=== PATIENT | male | born 1940 | race Caucasian/White ===

== ENCOUNTER 2016-11-04 12:10 | Inpatient (IN) | payer MEDICARE, BC ==
[~2016-11-04] VITALS: Ht 177.8 cm; Wt 147.4 kg
[~2016-11-04 12:10] MED LIST: AMBIEN5 MG PO; ASPIRIN325 MG PO; ATIVAN0.5 MG PO; ATROVENT 0.06%15 ML; BRINTELLIX10 MG PO; CELEXA40 MG PO; CRESTOR10 MG PO; FISH OIL PO; FLOMAX0.4 MG PO; GLUCOPHAGE500 MG PO; LASIX20 MG; LEVAQUIN750 MG PO; MYSOLINE 50 MG50 MG PO; OXYBUTYNIN CHLOR5 MG PO; PATADAY2.5 ML EACH EYE; PINDOLOL5 MG PO; POTASSIUM PO; PRINIVIL20 MG PO; SYSTANE 0.3-0.4%5 ML EACH EYE; TEGRETOL 200 M200 MG PO; TIROSINT25 MCG PO; TRAVATAN Z2.5 ML EACH EYE; VITAMIN D2000 UNIT PO; ZESTORETIC 20/11 TAB
[2016-11-04 13:46] LABS: HEMATOCRIT 43.7 % (42.0-54.0); HEMOGLOBIN 14.4 g/dL (13.5-17.5); MCH 32.1 pg (26.0-34.0); MCV 97.5 fL (80.0-100.0); MEAN PLATELET VOLUME 10.2 fL (7.4-10.4); PLATELET COUNT 173 10x3/uL (130-400); RBC 4.48 10x6/uL (4.20-6.10); RDW 13.3 % (11.5-14.5); WBC 22.2 10x3/uL (4.8-10.8)
[2016-11-04 14:14] LABS: ALBUMIN 3.9 g/dL (3.4-5.0); ALKALINE PHOSPHATASE 64 U/L (46-116); ALT (SGPT) 19 U/L (10-68); CALC OSMOLALITY 276 mosm/kg (275-300); CALCIUM 8.7 mg/dL (8.5-10.1); CARBON DIOXIDE 26.6 mmol/L (21.0-32.0); CHLORIDE - SERUM 99 mmol/L (98-107); CREATININE - SERUM 1.2 mg/dL (0.6-1.3); GLUCOSE 133 mg/dL (74-106); PROTEIN - SERUM 7.4 g/dL (6.4-8.2); SODIUM 137 mmol/L (136-145); UREA NITROGEN 16 mg/dL (7-18); eGFR NON AFRICAN AMERICAN 63 mL/min (90-120)
[2016-11-04 14:17] LABS: APPEARANCE HAZY (CLEAR); BACTERIA MANY /hpf (NONE SEEN); BILIRUBIN NEGATIVE (NEGATIVE); COLOR YELLOW (YELLOW); EPITHELIAL CELLS OCC /hpf (0-5); GLUCOSE NEGATIVE (NEGATIVE); KETONE NEGATIVE (NEGATIVE); LEUKOCYTE ESTERASE 2+ (NEGATIVE); MUCUS <1+ /lpf (NONE SEEN); NITRITE POSITIVE (NEGATIVE); PROTEIN 1+ mg/dL (NEGATIVE); RED CELLS - URINE 0-5 /hpf (0-5)
[2016-11-04 14:20] LABS: CREATINE KINASE 189 UL (21-232); PRO BNP 954 pg/mL (0-450); TROPONIN-I < 0.017 ng/mL (0.000-0.060)
[2016-11-04 14:41] LABS: UDS - AMPHET NEGATIVE QUAL (NEGATIVE); UDS - BARB POSITIVE QUAL (NEGATIVE); UDS - BENZO POSITIVE QUAL (NEGATIVE); UDS - COCAINE NEGATIVE QUAL (NEGATIVE); UDS - METH NEGATIVE QUAL (NEGATIVE); UDS - OPIATE NEGATIVE QUAL (NEGATIVE); UDS - PCP NEGATIVE QUAL (NEGATIVE); UDS - THC NEGATIVE QUAL (NEGATIVE)
[2016-11-04 15:01] LABS: BASOPHILS 1 % (0.0-2.0); LYMPHOCYTES 14 % (15-50); MONOCYTES 4 % (2-11); NEUTROPHILS 73 % (40-80)
[2016-11-04 15:02] LABS: PLATELET ESTIMATE DECREASED
[2016-11-04 18:22] VITALS: BP 118/73; BMI 46.7
--- NOTE | 2016-11-04 18:31 | NUR ---
Patient Name: ANKIT ANTHONY Admission Status: ER Accout number: [id number] Admission Date: 11-04-2016 : 1940 Admission Diagnosis: UTI, Sepsis Attending: ROXANNE Current LOS: 1 Anticipated DC Date: 11/07/16 Planned Disposition: Return home with . Primary Insurance: MEDICARE A & B Discharge Planning Comments: CM met with patient and family to complete initial discharge assessment. Spouse gave consent to complete assessment. Patient alert and oriented x 1. Spouse stated confusion is new for patient. She reports he is normally A&O x 3 but has been confused past few days. He is normally independent in his care at home. He has BIPAP that he wears at HS. He does not wear O2 at home. She denied patient having home health or other community resources at home. She is unsure of dc needs at this time. Patient will return home at discharge. Cm will continue to follow and assist as needed with dc plans/needs. Inclusion Specialist: Trish Bell RN, [facility] Is the patient Alert and Oriented? No * How many steps to enter\exit or inside your home? 1 * PCP Dr. Kapoor[facility] * Pharmacy [facility] * Preadmission Environment Home with Family * ADLs Independent * Equipment BIPAP * Other Equipment [employer] [place] Patient * List name and contact numbers for known caregivers / representatives who currently or will assist patient after discharge: More Anthony - spouse - [phone] * Community resources currently utilized None * Additional services required to return to the preadmission environment? No * Can the patient safely return to the preadmission environment? Yes * Has this patient been hospitalized within the prior 30 days at any hospital? No
[2016-11-04 19:00] VITALS: BP 130/62
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
--- NOTE | 2016-11-05 03:49 | NUR ---
PT RESTING IN BED WITH NO DISTRESS. RESPIRATIONS WITH EASE AND UNLABORED. SIDE RAILS ARE UP X 2. BED IS IN LOWEST POSITION. CALL LIGHT IS WITHIN REACH. VISITOR AT BEDSIDE.
[2016-11-05 04:00] VITALS: BP 129/63
[2016-11-05 04:57] LABS: BASOPHILS 0.1 % (0.0-2.0); EOSINOPHILS 0.2 % (0-7); HEMATOCRIT 38.5 % (42.0-54.0); HEMOGLOBIN 12.9 g/dL (13.5-17.5); IMMATURE GRANULOCYTES 0.3 % (0-5); LYMPHOCYTES 9.8 % (15-50); MCHC 33.5 g/dL (31.0-37.0); MEAN PLATELET VOLUME 10.2 fL (7.4-10.4); MONOCYTES 12.1 % (2-11); NEUTROPHILS 77.5 % (40-80); PLATELET COUNT 178 10x3/uL (130-400); RBC 4.03 10x6/uL (4.20-6.10); RDW 13.2 % (11.5-14.5)
[2016-11-05 04:58] LABS: MCV 95.5 fL (80.0-100.0)
[2016-11-05 05:08] LABS: ANION GAP 12.8 mmol/L (8-16); CALCIUM 8.4 mg/dL (8.5-10.1); CARBON DIOXIDE 26.7 mmol/L (21.0-32.0); CREATININE - SERUM 1.3 mg/dL (0.6-1.3); POTASSIUM - SERUM 3.5 mmol/L (3.5-5.1)
--- NOTE | 2016-11-05 06:33 | HP ---
PATIENT: ANKIT ANTHONY MEDICAL RECORD: [id number] ACCOUNT: [id number] LOCATION:D.MS [id number] : [birth year] ADMISSION DATE: 11/04/16 HISTORY AND PHYSICAL EXAMINATION DATE OF ADMISSION: 11/04/2016 CHIEF COMPLAINT: Frequent falls. HISTORY OF PRESENT ILLNESS: The patient is a 76-year-old gentleman, who began yesterday having extreme weakness in his upper and lower extremities. He had fallen times 5. The states that she thought he may have had a seizure. The patient presents to the Emergency Room. PAST MEDICAL HISTORY: Significant that he has had a history of having arteriosclerotic heart disease. He has had hypertension. The patient had coronary artery bypass grafting times 3 in 2009. He has had anxiety, as well as a low back pain, depression, diabetes, hyperlipidemia, hypertension and hypothyroidism. FAMILY HISTORY: Significant for myocardial infarction in his father. Mother of old age. MEDICATIONS: Include alprazolam ER 2 mg 1 p.o. b.i.d., aspirin 325 mg once a day, carbamazepine 200 mg 2 tablets b.i.d., timolol 6.8 mg per mL eyedrops, Lasix 40 mg in the morning and 40 in the afternoon, levothyroxine 25 mcg once a day, lisinopril/HCTZ 20/12.5 once a day, metformin 500 mg 1 tablet p.o. b.i.d., oxybutynin ER 10 mg 1 p.o. q. day, pindolol 5 mg 1 p.o. b.i.d., KCl 10 mEq once a day, primidone 50 mg p.o. q.h.s., Crestor 10 mg once a day, Flomax 0.4 mg 2 tablets once a day, Travatan 0.004% eyedrops and Trintellix 20 mg 1 p.o. q. day. HABITS: None. The patient is a former smoker, stopped in 1991. SOCIAL HISTORY: Born and raised in [place], [place]. 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 REVIEW OF SYSTEMS: CONSTITUTIONAL: He denies any headaches, seizure or syncope. Denies change in visual or auditory acuity. PULMONARY: He denies any shortness of breath, cough, congestion, history of TB, asthma or bronchitis. CARDIOVASCULAR: He has had no chest pain, palpitation, PND or orthopnea. GASTROINTESTINAL: No chronic nausea, vomiting, melena or hematochezia. GENITOURINARY: No urgency, frequency, or dysuria. PHYSICAL EXAMINATION: GENERAL: The patient does have a laceration over the tip of the nose. He has abrasions over the elbows. The patient is alert and oriented times 3. HEENT: His head is normocephalic. No lesions. Ears: TMs clear. Eyes: Pupils equal, round and reactive to light. His extraocular movements intact. Nasal cavity, oral cavity and oropharynx clear. NECK: Supple. There is no adenopathy. HEART: Has regular rhythm. No murmurs, gallops or rubs. LUNGS: Clear. ABDOMEN: Soft, bowel sounds positive. No organomegaly. HISTORY AND PHYSICAL [id number] ANTHONYANKITTERESE YIP GENITAL AND RECTAL: Deferred. LABORATORY DATA: The patient did have a CBC: White count was elevated at 22.2, his hemoglobin 14.4, hematocrit 43.7 and platelets are 173. He did have a left shift with increased neutrophils. His lactic acid was 2.1. Urinalysis showed positive nitrites. He also had 2+ leukocyte esterase. He had 5-10 wbc's per high power field, many bacteria were seen. He had a sodium of 137, potassium 4, chloride is 99, CO2 is 26.6, his BUN is 16, creatinine is 1.2, glucose is 133. He had a proBNP of 954. DIAGNSOTIC DATA: The patient had a chest x-ray showing mild cardiomegaly, no active infiltrates. The patient also had a CT scan of the head which is pending at the present time. ASSESSMENT: 1. Frequent falls. 2. Probable urosepsis, leukocytosis, coronary artery bypass grafting in the past, hyperlipidemia, hypertension, hypothyroidism and history of seizure disorder. PLAN: The patient will have a blood cultures, as well as urine cultures. He will be placed on Levaquin, as well as Rocephin, Tylenol for fever control, IV hydration. TRANSINT:[id number] Voice Confirmation ID: [id number] DOCUMENT ID: [id number] DOUGLAS CAMACHO MD at 0633 CC: [id number] DICTATION DATE: 11/04/16 180 RADIATION ONCOLOGY MANAGER: 11/04/161958 ADM IN [facility] [address] [id number]
--- NOTE | 2016-11-05 07:00 | NUR ---
REPORT RECEIVED FROM AUTOMOTIVE SALES MANAGER NURSE. CALL LIGHT IN REACH.
[2016-11-05 08:15] VITALS: BP 127/71
--- NOTE | 2016-11-05 09:17 | NUR ---
ASSESSMENT COMPLETED. AM MEDS ADMINISTERED. AT BEDSIDE. CALL LIGHT IN REACH. WILL CONTINUE WITH PLAN OF CARE.
--- NOTE | 2016-11-05 09:46 | NUR ---
PASSWORD OBTAINED AND PHARMACY UPDATED. SHOWER GIVEN PER CLOUD SUBJECT MATTER EXPERT.
--- NOTE | 2016-11-05 10:20 | NUR ---
OUT OF SHOWER. IV FLUIDS BACK INFUSING. CALL LIGHT IN REACH.
[2016-11-05] MEDS ORDERED: LISINOPRIL-HCTZ1 T11 PO (11:54)
[2016-11-05 12:30] VITALS: BP 127/61
--- NOTE | 2016-11-05 12:35 | NUR ---
EATING LUNCH AT THIS TIME. CALL LIGHT IN REACH.
[2016-11-05 13:36] VITALS: Ht 177.8 cm; Wt 147.4 kg
--- NOTE | 2016-11-05 14:14 | NUR ---
AMBULATED 250 FEET IN HALLWAY WITH PHYSICAL THERAPY. TOLERATED WELL.
--- NOTE | 2016-11-05 15:30 | NUR ---
QUIET IN ROOM AT PRESENT DENIES ANY NEEDS AT THIS TIME RESP EVEN AND UNLABORED AT PRESENT.
--- NOTE | 2016-11-05 15:35 | NUR ---
REPORT GIVEN TO GERRI GILL.
[2016-11-05 16:05] VITALS: BP 118/62
--- NOTE | 2016-11-05 18:26 | NUR ---
LEFT HAND PHERIAL LINE PATENT. SCHEDULED ANTIBIOTIC HUNG
[2016-11-05 19:00] VITALS: BP 140/63
--- NOTE | 2016-11-05 19:35 | NUR ---
RECIEVED SHIFT REPORT. PT IS LYING IN BED. ALERT AND ORIENTED AND ABLE TO VERBALIZE NEEDS. IV IS PATENT AND FLUIDS ARE RUNNING PER ORDER. O2 @ 2 PER NASAL CANNULA. PT IS AMBULATORY WITH ASSISTANCE. PT STATES PAIN IS 2/10. NO NEEDS ARE VERBALIZED AT THIS TIME. AT BEDSIDE. WILL CONTINUE TO MONITOR. SIDE RAILS ARE UP X 2. BED IS IN LOWEST POSITION. CALL LIGHT IS WITHIN REACH.
--- NOTE | 2016-11-05 21:31 | NUR ---
SHIFT ASSESSMENT COMPLETED. NIGHT MEDS GIVEN WITH NO PROBLEMS. NO NEEDS ARE VOICED. WILL MONITOR. SIDE RAILS X 2. BED LOW. AT BEDSIDE. CALL LIGHT IN REACH.
[2016-11-05 23:59] VITALS: BP 140/64
[2016-11-06 05:03] VITALS: BP 115/74
[2016-11-06 05:30] LABS: ANION GAP 14.2 mmol/L (8-16); CALCIUM 8.4 mg/dL (8.5-10.1); CARBON DIOXIDE 27.1 mmol/L (21.0-32.0); CREATININE - SERUM 1.2 mg/dL (0.6-1.3); POTASSIUM - SERUM 3.3 mmol/L (3.5-5.1)
[2016-11-06 05:31] LABS: BASOPHILS 0.1 % (0.0-2.0); EOSINOPHILS 2.2 % (0-7); HEMATOCRIT 39.1 % (42.0-54.0); HEMOGLOBIN 13.5 g/dL (13.5-17.5); IMMATURE GRANULOCYTES 0.3 % (0-5); LYMPHOCYTES 17.6 % (15-50); MCH 32.6 pg (26.0-34.0); MCHC 34.5 g/dL (31.0-37.0); MCV 94.4 fL (80.0-100.0); MEAN PLATELET VOLUME 10.7 fL (7.4-10.4); MONOCYTES 13.6 % (2-11); NEUTROPHILS 66.2 % (40-80); RBC 4.14 10x6/uL (4.20-6.10); RDW 13.2 % (11.5-14.5)
[2016-11-06 05:48] LABS: PLATELET COUNT 221 10x3/uL (130-400); WBC 10.1 10x3/uL (4.8-10.8)
[2016-11-06] MEDS ORDERED: LASIX40 MG PO (06:51)
[2016-11-06] MEDS ORDERED: LEVAQUIN750 MG PO (06:54)
[2016-11-06] MEDS ORDERED: KLOR-CON 1010 MEQ PO (06:54)
--- NOTE | 2016-11-06 07:00 | NUR ---
REPORT RECEIVED FROM PROFESSIONAL NURSE NURSE. CALL LIGHT IN REACH.
--- NOTE | 2016-11-06 07:30 | NUR ---
RESTING QUIETLY IN BED WITH EYES CLOSED. ANXIOUS TO GET HOME. DENIES NEEDS.
--- NOTE | 2016-11-06 08:09 | NUR ---
ASSESSMENT COMPLETED. IV DC'D WITH INTACT. IN ROOM. CALL LETHA N FARHANA. WILL CONTINUE WITH PLAN OF CARE.
--- NOTE | 2016-11-06 08:29 | NUR ---
AM MEDS ADMINISTERED. DC INSTRUCTIONS EXPLAINED TO PATIENT AND FAMILY. VERBALIZED UNDERSTANDING. WAITING FOR PATIENT TO GET DRESSED SO HE CAN GO.
--- NOTE | 2016-11-06 08:29 | NUR ---
ASSESSMENT COMPLETED. AM MEDS ADMINISTERED. DC INSTRUCTIONS EXPLAINED TO PATIENT, , AND SON, VERBALIZED UNDERSTANDING. CALL LIGHT IN REACH. WILL CONTINUE WITH PLAN OF CARE.
--- NOTE | 2016-11-06 08:50 | NUR ---
WC CALLED FOR PATIENT AND .
--- NOTE | 2016-11-06 08:55 | NUR ---
DC'D TO VEHICLE VIA WC WITH FAMILY.
--- NOTE | 2016-11-06 08:57 | NUR ---
CM REASSESSMENT NOTE: PATIENT STATED HE HAS NO NEEDS FOR DISCHARGE AND DENIED HOME HEALTH. CM SPOKE WITH NURSING (CEJA) TO DO A SPO2 CHECK BEFORE DISCHARGE.
--- NOTE | 2016-12-17 07:06 | DS ---
PATIENT:ANKIT ANTHONY :42 MEDICAL RECORD: [id number] DISCHARGE SUMMARY ADMISSION DATE: 11/04/16 DISCHARGE DATE: 11/06/16 DATE OF ADMISSION: 11/04/2016 DATE OF DISCHARGE: 11/06/2016 CONDITION ON DISCHARGE: Improved. ADMITTING DIAGNOSES: Frequent falls, probable urosepsis, leukocytosis, history of coronary artery bypass grafting, sleep apnea, hyperlipidemia, hypertension, hypothyroidism, history of seizure disorder. DISCHARGE DIAGNOSES: Sepsis, urinary tract infection, morbid obesity, history of arteriosclerotic heart disease, history of seizure disorder, morbid obesity, hyperlipidemia, hypothyroidism, diabetes mellitus. HOSPITAL COURSE: The patient is a 76-year-old gentleman who began experiencing extreme weakness in his upper and lower extremities. He had fallen times 5, 24 hours prior to his arrival. The patient's thought that the patient may have had a seizure, presented to the Emergency Room. The patient did have a laceration over the tip of the nose. He had abrasion over the elbows. PHYSICAL EXAMINATION: GENERAL: He was alert and oriented times 3. HEENT: Unremarkable. NECK: Supple. There is no adenopathy. HEART: Had regular rate and rhythm. No murmurs, gallops or rubs. LUNGS: Clear. ABDOMEN: Soft, bowel sounds are positive. No organomegaly. LABORATORY DATA: The patient had a white count elevated at 22.2, his hemoglobin 14.4, hematocrit 43.7, platelets of 173. He had a left shift with neutrophils. Lactic acid was 2.1. Urinalysis showed positive nitrite, 2+ leukocytes. He had 5-10 wbc's per high powered field, many bacteria were seen. BUN was 16, creatinine was 1, blood sugar was 133. The patient was admitted. He had a CT scan of the head, which was unremarkable. He was started on Levaquin as well as Rocephin. On the morning following his admission, his white count had decreased to 17. He was no longer febrile. His vital signs were stable. On the , the patient was afebrile. No longer having any evidence of near syncope or falls. His white count was down to 10.1, hemoglobin 13.5, hematocrit was 39.1, his platelets were 221. He had sodium 133, potassium 3.3, chloride was 100, CO2 was 27, BUN was 26, creatinine 1.1, his glucose 125. The patient had negative blood cultures. His condition did improve. He was no longer febrile and it was felt the patient could be discharged home. DISCHARGE MEDICATIONS: Therefore, he was discharged on: Lasix 40 mg p.o. b.i.d., KCl 10 mEq b.i.d., Levaquin 750 mg once a day for 7 days, Visken 5 mg p.o. b.i.d., metformin 500 mg p.o. b.i.d., levothyroxine 25 mcg once a day, Crestor 10 mg once a day, aspirin 325 mg daily, Flomax 0.4 mg daily, Tegretol 200 mg p.o. b.i.d., Ativan 0.5 mg q.6 hours p.r.n. anxiety, ____ 10 mg b.i.d., Mysoline 50 mg b.i.d., Brintellix 20 mg once daily, Travatan Z 0.004% ophthalmic 2.5 mL drops 1 in each eye q.h.s., Pataday 0.2 mg ophthalmic 2.5 drops 1 drop in each eye daily, Systane 5 mL drops 1 drop q.i.d. in each eye, Zestoretic 20/12.5 DISCHARGE SUMMARY REPORT [id number] ANKIT ANTHONY once a day. The patient was given 40 mEq of KCl prior to his discharge. DIET: He was discharged on 2200 calorie ADA diet. ACTIVITIES: Ad beth. FOLLOWUP: He would follow up with me in approximately 1 week. TRANSINT:[id number] Voice Confirmation ID: [id number] DOCUMENT ID: [id number] DOUGLAS CAMACHO MD at 0706 CC: [id number] DICTATION DATE: 12/15/16 1347 DEPUTY CHIEF COUNSEL: 12/16/16 0926 DIS IN 11/06/16 [id number] [facility] [place] [address]
== END 2016-11-06 08:55 | disposition home or self-care (01) | DRG 872 ==
LOC: D.ER 12:10 → D.MS 16:27
PROVIDERS: Emergency Medicine; ADMIT Family Medicine
DX: A41.9 Sepsis, unspecified organism (principal); N39.0 Urinary tract infection, site not specified; Z68.42 Body mass index [BMI] 45.0-49.9, adult; I50.9 Heart failure, unspecified; I25.10 Atherosclerotic heart disease of native coronary artery without angina pectoris; G40.909 Epilepsy, unspecified, not intractable, without status epilepticus; E66.01 Morbid (severe) obesity due to excess calories; E78.5 Hyperlipidemia, unspecified; E03.9 Hypothyroidism, unspecified; E11.9 Type 2 diabetes mellitus without complications; Z95.1 Presence of aortocoronary bypass graft; Z87.891 Personal history of nicotine dependence

== ENCOUNTER → 2018-02-16 15:19 | Outpatient (CLI) | payer MEDICARE, BC ==
[2016-11-05 13:36] VITALS: BMI 46.6
[~2018-02-16 15:19] MED LIST changes: +KLOR-CON 1010 MEQ PO; +LASIX40 MG PO; +LISINOPRIL-HCTZ1 T11 PO
== END | disposition home or self-care (01) ==
LOC: D.US 15:19
DX: M79.605 Pain in left leg (principal)

== ENCOUNTER → 2018-06-19 12:56 | Outpatient (CLI) | payer MEDICARE, BC ==
[2016-11-05 13:36] VITALS: BMI 46.6
== END | disposition home or self-care (01) ==
LOC: D.ECHO 12:56
DX: H34.8122 Central retinal vein occlusion, left eye, stable (principal); I70.0 Atherosclerosis of aorta

== ENCOUNTER 2018-07-21 11:08 | Outpatient (CLI) | payer MEDICARE, BC ==
[~2018-07-21] VITALS: Ht 177.8 cm; Wt 140.5 kg
--- NOTE | ~2018-07-21 | OP ---
PATIENT NAME: Kavon ANTHONY MEDICAL RECORD: [id number] :42 LOCATION:D.CAT ADMISSION DATE: SURGEON: BRODY PRINGLE MD DATE OF OPERATION: 07/21/2018 PREOPERATIVE DIAGNOSES: 1. Third-degree AV block. 2. Hypertension. 3. Tobacco dependence syndrome. POSTOPERATIVE DIAGNOSES: 1. Third-degree AV block. 2. Hypertension. 3. Tobacco dependence syndrome. PROCEDURE: Left subclavian vein dual lead pacemaker placement. SURGEON: Brody Pringle MD CO-SURGEON: Sherman Montejo MD REPORT OF OPERATION: The patient's left chest was prepped and draped in sterile fashion. A 25 mL of 1% lidocaine with epinephrine was infused into the surrounding tissues. A skin incision was made on the left superolateral chest and a subcutaneous pouch was made over the pectoral fascia. Using a needle, we cannulated the left subclavian vein and a guidewire was advanced with ease. Another needle and wire were advanced, and at this point, fluoro was used to note that the 2 wires were in good position in the venous system. The dilator trocar devices were placed over the wires and the wires and dilators were removed. The 2 leads were then inserted into the trocars. At this point, Dr. Montejo positioned the leads appropriately in the heart. Once they were noted to be functioning appropriately, then the leads were sutured into place with #0 Ti-Cron. The leads were then attached to the pacemaker. The pacemaker was placed into the subcutaneous pouch and sutured to the pectoral fascia using a single interrupted #0 Ti-Cron. We irrigated out the wound with antibiotic solution. The subcutaneous tissues were reapproximated with interrupted 3-0 Vicryl and the skin was closed with running subcutaneous 5-0 Monocryl. COMPLICATIONS: None. CONDITION: Stable. ANESTHESIA: Local MAC. BLOOD LOSS: Minimal. TRANSINT:[id number] Voice Confirmation ID: [id number] DOCUMENT ID: [id number] OPERATIVE REPORT [id number] Kavon ANTHONY CHRISTIAN MD at 1441 CC: [id number] DICTATION DATE: 07/21/18 1632 PORT SURVEYOR: 07/21/18 1707 DEP CLI 07/22/18 [place] [address]
--- NOTE | ~2018-07-21 | HEMODYNAMI ---
PATIENT:Kavon ANTHONY MEDICAL RECORD: [id number] : 42 LOCATION:[facility] ADMISSION DATE: 07/21/18 Generatedon:07/21/201815:39 Patient name: Kavon ANTHONY Patient #: [id number] SSN: : 1940 Date of study: 07/21/2018 Page: Of Hemodynamic Procedure Report Patient Data Patient Demographics Procedure consent was obtained First Name: Kavon Gender: Male Last Name: GABRIELLE : 1940 Middle Initial: J Age: 77 year(s) Patient #: [id number] Race: Additional ID: [id number] Contact details [address]: [address] [place] [address] State: [place] City: [place] Zip code: [address] Past Medical History Allergies: No known allergies Admission Admission Data Admission Date: 07/21/2018 Admission Time: 11:08 Procedure Procedure Types Cath Procedure Diagnostic Procedure PPM/ICD PPM Dual Implant Sedation Charges Moderate Sedation up to 15 minutes Procedure Description Procedure Date Procedure Date: 07/21/2018 Procedure Start Time: 15:15 Procedure Staff Name Function Sherman Barnes MD Performing Physician Ashley Steiner RT Monitor Sukhdeep Minor RN Nurse Deanna Wong RT Scrub Reid Gupta MD Assisting physician Procedure Data Cath Procedure Fluoroscopy Diagnostic fluoroscopy Total fluoroscopy Time: 1 time: 1 min min Diagnostic fluoroscopy Total fluoroscopy dose: 68 dose: 68 mGy mGy Estimated blood loss: 5 ml Procedure Complications No complications Procedure Medications Medication Administration Route Dosage Oxygen etCO2 Nasal cannula 2 l/min Ancef (1Gm/50ml NS) I.V.P.B 1 g Ancef Irrigation Topical 1 g (1gm/500ml NS) 0.9% NaCl I.V. 100 ml/hr Fentanyl I.V. 50 mcg Versed I.V. 1 mg Fentanyl I.V. 50 mcg Versed I.V. 1 mg Hemodynamics Rest Heart Rate: 44 (bpm) Snapshots Pre Cath Intra NCS Post Cath Vital Signs Time Heart Resp SPO2 etCO2 NIBP (mmHg) Rhythm Pain Sedation Rate (ipm) (%) (mmHg) Status Level (bpm) 14:56:45 109 16 95 0 146/83(132) NSR 0 (11) 10(A) , No pain 15:02:21 42 16 95 31.7 149/74(136) NSR 0 (11) 10(A) , No pain 15:08:03 39 17 97 33.2 155/77(141) NSR 0 (11) 10(A) , No pain 15:12:33 44 17 98 33.2 160/82(132) NSR 0 (11) 10(A) , No pain 15:17:06 56 17 94 38.5 150/76(125) NSR 0 (11) 10(A) , No pain 15:21:40 77 16 93 40 170/88(141) NSR 0 (11) 10(A) , No pain 15:26:17 121 17 93 37.7 156/80(119) NSR 0 (11) 10(A) , No pain 15:30:49 85 16 95 37.7 157/84(127) NSR 0 (11) 10(A) , No pain 15:35:26 121 16 95 34.7 144/80(118) NSR 0 (11) 10(A) , No pain Medications Time Medication Route Dose Verified Delivered Reason Notes Effective ness by by 14:54:44 Oxygen etCO2 2 Sherman Tarango Per Nasal l/min St Dl Minor RN physician cannula 14:54:53 Ancef I.V.P.B 1 g Sherman Tarango Per (1Gm/50ml St Dl Minor RN physician NS) 14:55:03 Ancef Topical 1 g Sherman Millsy used for Irrigation St Dl Minor software maintenance engineer (1gm/500ml NS) 14:55:13 0.9% NaCl I.V. 100 Sherman Tarango Per ml/hr St Dl Minor RN physician 15:13:32 Fentanyl I.V. 50 Sherman Tarango for [facility] Minor RN sedation 15:13:39 Versed I.V. 1 [address] [facility] D[facility] Minor RN sedation 15:15:40 Fentanyl I.V. 50 Sherman Tarango for [facility] Minor RN sedation 15:15:46 Versed I.V. 1 mg [address] for [facility] D[facility] Minor RN sedation Procedure Log Time Note 14:21:08 Time tracking: Regular hours (M-F 7:00 - 5:00) 14:21:12 Plan of Care:Hemodynamics will remain stable., Cardiac rhythm will remain stable., Comfort level will be maintained., Respiratory function will remain adequate., Patient/ family verbilizes understanding of procedure., Procedure tolerated without complication., Recovers from procedure without complications.. 14:32:49 Ashley Counts RT(R) sent for patient. Start room use. 14:48:13 Patient received from Pre/Post Procedure Room to CCL 3 Alert and oriented. Tansferred to table in Supine position. 14:48:14 Warm blankets applied, and sohan hugger turned on for patient comfort. 14:48:15 Correct patient and procedure confirmed by team. 14:48:16 Signed procedure consent form obtained from patient. 14:48:17 ECG and BP/O2 sat monitors applied to patient. 14:54:44 Oxygen 2 l/min etCO2 Nasal cannula was administered by Sukhdeep Minor RN; Per physician; 14:54:53 Ancef (1Gm/50ml NS) 1 g I.V.P.B was administered by Sukhdeep Minor RN; Per physician; 14:55:03 Ancef Irrigation (1gm/500ml NS) 1 g Topical was administered by Sukhdeep Minor RN; used for procedure; 14:55:13 0.9% NaCl 100 ml/hr I.V. was administered by Sukhdeep Minor RN; Per physician; 14:55:20 Vital chart was started 14:56:49 Full Disclosure recording started 14:56:57 Rhythm: 3rd degree heart block 14:57:10 H&P Date Dictated: 07/20/2018 Within 30 days and on chart., H&P Addendum completed by physician on day of procedure. (MUST COMPLETE FOR ALL OUTPATIENTS). 14:57:11 Pre-procedure instructions explained to patient. 14:57:12 Pre-op teaching completed and patient verbalized understanding. 14:57:14 Family in patients room. 14:57:16 Patient NPO since Midnight. 14:57:22 Patient allergic to No known allergies 14:57:26 Is the patient allergic to Iodine/contrast media? No. 14:57:28 Is patient on blood thinner?No 14:57:31 Patient diabetic? No. 14:57:48 Previous problem with sedation/anesthesia? No ? 14:57:50 Snore? Yes 14:57:51 Sleep apnea? Yes 14:57:53 Deviated septum? No 14:57:54 Opens mouth fully? Yes 14:57:54 Sticks out tongue? Yes 14:57:57 Airway obstruction? No ? 14:58:11 Dentures? Yes IN 14:58:17 Patient pain scale 0/10 ?. 14:58:30 IV patent on arrival in left forearm with 0.9% NaCl at [facility]. 14:58:32 Lab results completed and on chart. 14:58:43 Left chest area was prepped with chlora-prep and draped in sterile fashion 14:58:46 Alarms reviewed by R. N. 14:58:46 Sharps counted by scrub and verified by R.N. 14:58:56 Use device set YARY PPM 14:58:58 Immobilizer Extra Large opened to sterile field. 14:59:00 Cautery Tip Horse Shoer opened to sterile field. 14:59:01 Cautery Pushbutton Pencil opened to sterile field. 14:59:02 Mepilex Dressing ([id number]) opened to sterile field. 14:59:03 2-0 Ticron Multipack ([id number]) opened to sterile field. 14:59:03 3-0 Vicryl Single Pack [id number] opened to sterile field. 14:59:04 5-0 Monocryl PS2 [id number] opened to sterile field. 14:59:14 Medtronic sales and marketing representative Segundo Mcduffieoe present for procedure. 14:59:25 Pre sharps counted by scrub and verified by RN: Sutures: 7; Sponges: 5; Stick needles: 2; Skin needles: 2; Blade: 1; Cautery: 1 14:59:29 Grounding pad site Left thigh. 14:59:31 Grounding pad site free from injury. 15:06:22 Baseline sample Acquired. 15:12:24 Final Timeout: patient, procedure, and site verified with staff and physician. All members of the team are in agreement. 15:12:27 Left chest site verified by team. 15:12:30 Physical assessment completed. ASA score P 2 - A patient with mild systemic disease as per Sherman Barnes MD. 15:13:07 Sedation plan: IV Moderate Sedation Medication:Versed, Fentanyl 15:13:32 Fentanyl 50 mcg I.V. was administered by Sukhdeep Minor RN; for sedation; 15:13:39 Versed 1 mg I.V. was administered by Sukhdeep Minor RN; for sedation; 15:15:40 Fentanyl 50 mcg I.V. was administered by Sukhdeep Minor RN; for sedation; 15:15:46 Versed 1 mg I.V. was administered by Sukhdeep Minor RN; for sedation; 15:15:50 Lidocaine 1% was administered to left subclavicular area by Reid Gupta MD . 15:16:35 Incision made to left subclavicular area. 15:18:14 Generator pocket made/opened. 15:22:16 Left subclavian vein accessed with 7Fr Peel Away Sheath. 15:22:23 Ventricular lead inserted and advanced. 15:22:41 Left subclavian vein accessed with 7Fr Peel Away Sheath. 15:22:43 Atrial lead inserted and advanced. 15:23:55 Ventricular lead positioned. 15:24:28 Ventricular lead tested. 15:24:52 Ventricular lead repositioned. 15:24:55 Ventricular lead tested. 15:25:05 Atrial lead positioned. 15:26:09 Atrial lead tested. 15:26:13 Peel-a-way sheath was split and removed. 15:26:14 Peel-a-way sheath was split and removed. 15:26:56 Atrial lead attachment was completed with 2-0 ticron. 15:27:22 Ventricular lead attachment was completed with 2-0 ticron. 15:28:20 Medtronic 4074-52 PPM Lead opened to sterile field. 15:28:21 Medtronic Advisa MRI PPM Dual Generator [id number] opened to sterile field. 15:28:21 Medtronic 4574-45 PPM Lead opened to sterile field. 15:30:26 PPM Dual was attached to lead(s) and inserted into pocket. 15:30:37 Subcutaneous closure was completed with 3-0 vicryl. 15:30:49 Parameters-- Generator: Mode: DDDR. Lower Rate: 60bpm. Upper Rate: 120bpm. 15:31:14 Parameters--Atrial P/R Wave: 3.4mV. Current: 1.1mA; Threshold: 0.5V; Impedence: 564OHMS. 15:31:34 Parameters--Ventricular P/R Wave: 5.9mV. Current: 2.5mA; Threshold: 0.8V; Impedence: 808OHMS. 15:33:17 Skin closure was completed with 5-0 monocryl. 15:33:22 Lt Chest incision was dressed with Mepilex dressing. 15:33:29 Procedure ended.(Physican Out) 15:33:40 Fluoroscopy time 01.00 minutes. 15:33:45 Fluoroscopy dose: 68 mGy 15:33:45 Flurop Dose total: 68 15:33:50 Sharps counted by scrub and verified by R.N. 15:34:02 Post sharps counted by scrub and verified by RN: Sutures: 7; Sponges: 5; Stick needles: 2; Skin needles: 2; Blade: 1; Cautery: 1 15:34:06 Insertion/operative site no bleeding no hematoma. 15:34:19 Post Chest area:stable, clean and dry 15:34:21 Post Procedure Pulses reassessed and unchanged 15:34:23 Post-procedure physical assessment completed. ASA score P 2 - A patient with mild systemic disease as per Sherman Banres MD. 15:34:26 Post procedure rhythm: unchanged. 15:34:41 Estimated blood loss: 5 ml 15:34:43 Post procedure instruction explained to patient.Patient verbalizes understanding. 15:34:43 Patient needs reinforcement of post procedure teaching. 15:34:59 Procedure type changed to Cath procedure, Diagnostic procedure, PPM/ICD, PPM Dual Implant, Sedation Charges, Moderate Sedation up to 15 minutes 15:35:04 Procedure Complication : No complications 15:35:06 See physician's report for complete and final results. 15:36:39 Procedure and supply charges have been captured, reviewed, submitted and are correct. 15:37:51 Vital chart was stopped 15:37:53 Report given to PCU. 15:37:57 Patient transfered to PCU with Bed. 15:38:20 End room use (Document Last) Device Usage Item Name Manufacture Quantity Catalog Hospital Part Current Minimal Lot# / Number Charge Number Stock Stock Serial# Code Immobilizer Cardinal 1 [id number] 5 Extra Large Health Cautery Tip Microtek 1 [id number] 485982 040089 380461 5 [employer] Cautery Microtek 1 [id number] 999942 59429 880979 5 [facility] [employer] [facility] Pencil Mepilex Cardinal 1 [id number] 435412 332818 139332 5 Dressing Health (437735) 2-0 Ticron Ethicon 4 [id number] 101713 47495 370804 5 Multipack ([id number]) 3-0 Vicryl Ethicon 1 [id number] 828734 050484 627068 5 Single Pack [id number] 5-0 Monocryl Ethicon 1 [id number] 992654 598181 825604 5 PS2 Y495G Medtronic Medtronic 1 4074-52 241943 933518 5 [id number] 4074-52 PPM 2020-03-19 Lead Medtronic Medtronic 1 [id number] 491955 694058 5 [id number] Advisa MRI 2019-09-11 PPM Dual Generator [id number] Medtronic Medtronic 1 4574-45 448218 539074 5 [id number] 4574-45 PPM Lead Signature Audit [place] Stage Time Signature Unsigned Intra-Procedure 07/21/2018 Ashley 3:39:31 PM Counts RT(R) Signatures Monitor : Ashley Signature : Counts RT Date : Time : [id number] [place] [address]
--- NOTE | ~2018-07-21 | OP ---
PATIENT NAME: Kavon ANTHONY MEDICAL RECORD: [id number] :42 LOCATION:[facility] ADMISSION DATE: SURGEON: CHARMAINE HODGE MD DATE OF OPERATION: 07/21/2018 PROCEDURE: Lead portion of permanent pacer placement INDICATION: High degree AV block. SURGEON: Reid Gupta MD DESCRIPTION OF PROCEDURE: After left subclavian was cannulated via modified Seldinger technique via Dr. Gupta first under fluoroscopic guidance, I placed the RV lead in the RV apex without difficulty. After thresholds and R waves were obtained, again under fluoroscopic guidance, I placed the right atrial lead in the right atrial appendage without difficulty. After adequate thresholds and P waves were obtained, the leads were attached to the appropriate poles of the generator and the pocket was closed via Dr. Gupta. IMPRESSION: Successful lead portion of permanent pacemaker placement. ESTIMATED BLOOD LOSS: Minimal. COMPLICATIONS: None. DISPOSITION: To the floor, stable. TRANSINT:[id number] Voice Confirmation ID: [id number] DOCUMENT ID: [id number] CHARMAINE HODGE MD at 2229 CC: [id number] DICTATION DATE: 07/21/18 1533 PLASTER AND STUCCO WORKER: 07/21/18 1600 DEP CLI 07/22/18 [id number] [place] [address]
[2018-07-21 11:22] VITALS: BMI 44.4
[2018-07-21] MEDS ORDERED: XANAX2 MG PO (11:31)
[2018-07-21] MEDS ORDERED: PRINIVIL20 MG PO (11:32)
[2018-07-21] MEDS ORDERED: DONEPEZIL HCL5 M1 PO (11:33)
[2018-07-21] MEDS ORDERED: TRINTELLIX20 MG PO (11:35)
[2018-07-21 11:59] LABS: HEMOGLOBIN 13.6 g/dL (13.5-17.5); MCH 32.7 pg (26.0-34.0); MCV 96.2 fL (80.0-100.0); MEAN PLATELET VOLUME 9.8 fL (7.4-10.4); RBC 4.16 10x6/uL (4.20-6.10); RDW 13.6 % (11.5-14.5); WBC 8.3 10x3/uL (4.8-10.8)
[2018-07-21 12:06] LABS: CALC OSMOLALITY 284 mosm/kg (275-300); CALCIUM 8.3 mg/dL (8.5-10.1); CARBON DIOXIDE 25.4 mmol/L (21.0-32.0); CHLORIDE - SERUM 105 mmol/L (98-107); GLUCOSE 108 mg/dL (74-106); POTASSIUM - SERUM 4.4 mmol/L (3.5-5.1); SODIUM 141 mmol/L (136-145); UREA NITROGEN 21 mg/dL (7-18); eGFR NON AFRICAN AMERICAN 77 mL/min (90-120)
[2018-07-21 12:08] LABS: INR 1.06 (0.85-1.17); PROTIME 13.4 SECONDS (11.6-15.0)
[2018-07-21 16:24] VITALS: BP 139/75; Ht 177.8 cm; Wt 140.5 kg
[2018-07-21 20:00] VITALS: BP 151/67
[2018-07-22] VITALS: BP 123/60
[2018-07-22 04:00] VITALS: BP 166/67
[2018-07-22 08:14] VITALS: BP 117/72
== END 2018-07-22 10:24 | disposition home or self-care (01) ==
LOC: D.CATH 11:08 → D.M2 16:12 → D.CATH 07-22 10:24
PROVIDERS: Internal Medicine Interventional Cardiology
DX: I44.2 Atrioventricular block, complete (principal)